=== PATIENT | female | born 1950 | race Caucasian/White ===

== ENCOUNTER → 2023-12-05 06:34 | Day surgery (SDC) | payer OTHER, SELFPAY | LOC: GI 06:34 | PROVIDERS: ATTENDING PHYSICIAN Internal Medicine Gastroenterology; FAMILY PHYSICIAN Family Medicine | DX: K44.9 Diaphragmatic hernia without obstruction or gangrene (principal); K29.50 Unspecified chronic gastritis without bleeding; K21.9 Gastro-esophageal reflux disease without esophagitis | CPT/HCPCS: 43239; 88305; 88342 ==

== ENCOUNTER → 2023-12-19 09:52 | Outpatient (REF) | payer OTHER, SELFPAY | LOC: RAD 09:52 | PROVIDERS: ATTENDING PHYSICIAN Physician Assistant Medical | DX: M89.8X1 Other specified disorders of bone, shoulder (principal); M53.3 Sacrococcygeal disorders, not elsewhere classified | CPT/HCPCS: 72202; 73000 ==

== ENCOUNTER → 2024-05-11 10:47 | Outpatient (REF) | payer MEDICARE, OTHER, SELFPAY | LOC: HWWDC 10:47 | PROVIDERS: ATTENDING PHYSICIAN Obstetrics & Gynecology Gynecology; FAMILY PHYSICIAN Family Medicine | DX: Z12.31 Encounter for screening mammogram for malignant neoplasm of breast (principal) | CPT/HCPCS: 77063; 77067 ==

== ENCOUNTER → 2024-05-18 08:08 | Outpatient (REF) | payer MEDICARE, OTHER, SELFPAY | LOC: HWRAD 08:08 | PROVIDERS: ATTENDING PHYSICIAN Internal Medicine Rheumatology; FAMILY PHYSICIAN Family Medicine | DX: M81.0 Age-related osteoporosis without current pathological fracture (principal) | CPT/HCPCS: 77080 ==

== ENCOUNTER 2024-10-13 09:07 | Emergency (ER) | payer MEDICARE, OTHER, SELFPAY ==
[2024-10-13 09:09] VITALS: BP 119/71
[2024-10-13 09:46] VITALS: BMI 27.6
[2024-10-13 09:51] VITALS: BP 114/80
[2024-10-13 10:00] VITALS: BP 119/79
[2024-10-13 11:00] VITALS: BP 109/69
--- NOTE | 2024-10-13 11:10 | ED.GENMED ---
History of Present Illness
General
Chief Complaint: Allergic Reaction
Source: patient
Time Seen by Provider: 10/13/24 09:30
History of Present Illness
History of Present Illness:
74-year-old female presents to the emergency room complaining of flushing and redness to her face as well as a sensation her face was tight. She also noted flushing and redness on her chest. No shortness of breath. Patient concerned she was
having an allergic reaction to an injection of Prolia she received 4 days ago. She also received a cortisone injection on into her finger for trigger finger. Patient feels the symptoms have improved somewhat at the time of my evaluation
compared to when she first noticed them. She did not take any medications at home. She denies any sore throat, cough, fever or chills. Symptoms began while she was eating breakfast but she denies eating any thing that she feels could have been an
allergen. She denies any nausea or vomiting.
Past History
Past History
ED Past Medical History: None
ED Past Surgical History: Orthopedic (Carpal tunnel right)
Social History
Tobacco: Non-smoker
Alcohol: None
Drug: None
Living: with family
Family History
Family History: Negative Early CAD or CAD
Phy Exam
Physical Exam
Physical Exam:
General: Awake, Alert, Oriented X3. No acute distress.
Vitals: unremarkable
Head: Atraumatic
Eyes: Pupils equal, EOMI
Throat: Airway intact, no exudates
Neck: Trachea midline
Lungs: Clear and equal b/l
Heart: Regular rate, no murmurs
Abd: Soft, Nontender, No pulsatile mass
Neuro: Nonfocal
Skin: Flushing of cheeks bilaterally, mild erythema to the anterior chest. No real urticarial lesions
Extremities: pulses equal b/l, no edema
Course
Orders/Labs/Results
Orders:
Orders
10/13/24 11:08
Diphenhydramine [Benadryl] 25 mg IV NOW STA
10/13/24 11:47
Basic Metabolic Panel Urgent
Complete Blood Count/No Diff Urgent
Abnormal Lab Results
10/13/24
11:47
MCH 31.3 H pg
(27.0-31.0)
MPV 11.1 H fL
(7.4-10.4)
10/13/24 11:47
10/13/24 11:47
Vital Signs
Initial and Last Documented VS:
Initial Vital Signs
Temp Pulse Resp BP Pulse Ox
98.4 F 58 16 119/71 100
10/13/24 09:09 10/13/24 09:09 10/13/24 09:09 10/13/24 09:09 10/13/24 09:09
Last Documented Vital Signs
Temp Pulse Resp BP Pulse Ox
98.4 F 54 16 113/71 98
10/13/24 09:09 10/13/24 13:00 10/13/24 13:00 10/13/24 13:00 10/13/24 13:00
MDM/Problems Addressed
Differential Diagnosis Includes:
allergic rx, viral illness
MDM/Problems Addressed:
Patient presents with facial erythema. No signs or symptoms of infection. No other signs or symptoms of a allergic reaction. No significant change with Benadryl. Patient observed for period of time without any change in her status. Stable for
discharge home. Discuss the symptoms with the doctor who prescribes her Prolia.
*Pulse Oximetry
Patient hypoxic: no
*Critical Care Note
Total Time (30-74mins, 75-104mins- exclusive of procedures): Not Applicable
ED Attending Note
-
Portions of this chart may have been created with voice recognition software.� Occasional wrong word or��sound alike� substitutions may have occurred due to the inherent limitations of voice recognition software.
Discharge Plan
Departure
Patient Disposition: Home (Routine Discharge)
Date of Disposition: 10/13/24
Time of Disposition: 12:54
Patient with high blood pressure during this ER visit?: No
Condition: Good
Discharge Problem:
Allergic reaction
Instructions: Adverse Drug Reactions, Adult (DC)
Prescriptions:
No Action
fexofenadine [Yoko] 180 MG tablet
180 mg PO DAILY
nitrofurantoin monohyd/m-cryst 100 MG capsule
100 mg PO BID
calcium-vitamin D3-vitamin K 1 EACH tablet,chewable
1 ea PO DAILY
cephalexin 500 MG capsule
500 mg PO BID Qty: 14 0RF
Referrals:
Stephen Ramey, DO [Family Provider] -
Interventions
Interventions:
*Risk Screen - Suicide Last Done: 10/13/24 09:09
*General Assessment Last Done: 10/13/24 09:09
*Neglect/Abuse Screening Last Done: 10/13/24 09:09
ED- Fall Risk Assessment Last Done: 10/13/24 13:00
*ED COVID-19 Vaccine History Last Done: 10/13/24 13:00
*Nursing Disposition Last Done: 10/13/24 13:00
ED- Cardiac Assessment Last Done: 10/13/24 09:50
ED- Pulmonary Assessment Last Done: 10/13/24 09:50
ED-Skin Assessment Last Done: 10/13/24 09:50
Discharge Date and Time
Discharge Date/Time: 10/13/24 13:00
Print Language: KOSOVAN
[2024-10-13] MEDS: BENADRYL 25 MG IV (11:50)
[2024-10-13 11:56] LABS: Hematocrit 43.9 % (37.0-47.0); Hemoglobin 14.7 g/dL (12.0-16.0); Mean Corp Hgb Conc. 33.5 g/dL (33.0-37.0); Mean Corpuscular Hgb 31.3 pg (27.0-31.0); Mean Corpuscular Volume 93.6 fL (81.0-99.0); Mean Platelet Volume 11.1 fL (7.4-10.4); Platelet Count 261 10^3/uL (130-400); Red Blood Cell Count 4.69 10^6/uL (4.20-5.40); White Blood Cell Count 7.7 10^3/uL (4.8-10.8)
[2024-10-13 12:00] VITALS: BP 134/77
[2024-10-13 12:12] LABS: Blood Urea Nitrogen 16 mg/dl (7-17); Carbon Dioxide 30 mmol/L (22-30); Chloride 105 mmol/L (98-107); Estimated Creatinine Clearance 67 ml/min; Glucose 73 mg/dl (70-99); Potassium 4.4 mmol/L (3.5-5.1); Sodium 141 mmol/L (135-145); eGFR > 60.00
[2024-10-13 13:00] VITALS: BP 113/71
== END 2024-10-13 13:00 | disposition home or self-care (01) ==
LOC: EMR 09:07
PROVIDERS: EMERGENCY PHYSICIAN Emergency Medicine; FAMILY PHYSICIAN Family Medicine
DX: T78.40XA Allergy, unspecified, initial encounter (principal); R23.2 Flushing; L53.9 Erythematous condition, unspecified
CPT/HCPCS: 99284; 96374; 80048; 85027

== ENCOUNTER → 2025-06-05 14:12 | Outpatient (REF) | payer MEDICARE, OTHER, SELFPAY | LOC: HWWDC 14:12 | PROVIDERS: ATTENDING PHYSICIAN Obstetrics & Gynecology Gynecology; FAMILY PHYSICIAN Family Medicine | DX: Z12.31 Encounter for screening mammogram for malignant neoplasm of breast (principal) | CPT/HCPCS: 77063; 77067 ==

== ENCOUNTER 2025-06-14 14:12 | Emergency (ER) | payer MEDICARE, OTHER, SELFPAY ==
[2025-06-14 14:22] VITALS: BP 150/80
[2025-06-14 15:32] LABS: Hematocrit 42.2 % (37.0-47.0); Hemoglobin 13.9 g/dL (12.0-16.0); Mean Corp Hgb Conc. 32.9 g/dL (33.0-37.0); Mean Corpuscular Volume 91.7 fL (81.0-99.0); Nucleated Red Blood Cells % 0 %; Platelet Count 246 10^3/uL (130-400); Red Cell Dist. Width 11.9 % (11.5-14.5)
[2025-06-14 15:46] LABS: ALT (SGPT) 16 U/L (0-35); AST (SGOT) 21 U/L (14-36); Albumin 4.3 g/dl (3.5-5.0); Alkaline Phosphatase 63 U/L (38-126); Blood Urea Nitrogen 16 mg/dl (7-17); Calcium 9.4 mg/dl (8.4-10.2); Carbon Dioxide 29 mmol/L (22-30); Chloride 107 mmol/L (98-107); Glucose 97 mg/dl (70-99); Potassium 3.9 mmol/L (3.5-5.1); Sodium 140 mmol/L (135-145); Total Protein 6.6 g/dl (6.3-8.2); eGFR > 60.00
--- NOTE | 2025-06-14 15:50 | ED.GENMED ---
History of Present Illness
General
Chief Complaint: Visual Problem
Source: patient
Exam Limitations: none
Time Seen by Provider: 06/14/25 15:25
Nursing documentation reviewed up to this point in time: agreed with
History of Present Illness
History of Present Illness:
The patient is a pleasant 74-year-old female who reports fairly sudden onset of left sided head numbness and pressure that started 11 AM this morning. The pressure was associated with a visual disturbance of the left eye. Patient describes a
visual disturbance as as if she was looking through a prism. She reports her vision was intact but the images were distorted. She also had associated mild nausea but no vomiting. She reports the visual disturbance lasted 30 minutes but went away
completely. Patient reports she still feels some pressure on the left side of her head. She denies eye pain. 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
abnormal was found in her eye. She was told that she had ' an aura'. Patient reports that she has no other symptoms such as weakness. She denies any numbness of the arms and legs. She denies dizziness or gait dysfunction. Patient denies a
history of high blood pressure, hyperlipidemia and states she is generally well and healthy.
Past History
Past History
ED Past Medical History: GERD
ED Past Surgical History: Orthopedic (Carpal tunnel right)
Social History
Tobacco: Non-smoker
Alcohol: None
Drug: None
Living: with family
Employment: Other
Family History
Family History: Other
Review of Systems
Review of Systems
Allergies reviewed?: Yes
All Other Systems: ROS reviewed and negative except as documented in HPI and ROS
Constitutional: Reports no symptoms
EENT: Reports no symptoms
Respiratory: Reports no symptoms
Cardiac: Reports no symptoms
ABD/GI: Reports nausea
: Reports no symptoms
Musculoskeletal: Reports no symptoms
Skin: Reports no symptoms
Neurological: Reports headache and numbness
Endocrine: Reports no symptoms
Hematologic/Lymphatic: Reports no symptoms
Psychiatric: Reports no symptoms
Phy Exam
Physical Exam
Physical Exam:
Physical Exam
General: no apparent distress, not acutely ill, very well and comfortable appearing
Neck: supple. no meningeal signs. normal psoterior pharynx
Heart: s1/s2 regular rate and rhythm, no murmur. equal radial pulses.
Lungs: no acute respiratory distress. clear bilaterally
Abdomen: normal bowel sounds. not tender. no CVAT
Neuro: alert and orientedx3. no focal neurological deficits. Equal sensation in face, arms and legs. Extraocular muscles intact. Visual perez intact. PERRL, no global eye tenderness. 5 out of 5 strength in all
extremities without drift. No ataxia
Skin: no rash
Psychiatric: well kept. interactive and cooperative
Extremities: no edema. no calf tenderness. negative homans. good distal pulses
Course
Orders/Labs/Results
Orders:
Orders
06/14/25 15:22
Complete Blood Count/With Diff Urgent
Comprehensive Metabolic Panel Urgent
Erythrocyte Sed Rate Urgent
Comment: ADD ON
06/14/25 15:25
Add On- LAB Urgent
Tests Added?: ESR
06/14/25 15:57
Prochlorperazine [Compazine] 10 mg IV NOW STA
06/14/25 16:00
CT Head W/o Iv Contrast Urgent
Comment:
Reason For Exam: headache, L eye complaint
CT Neck Angio W/wo Iv Contrast Urgent
Comment:
Reason For Exam: headache, L eye complaint
06/14/25 16:01
Diphenhydramine [Benadryl] 25 mg IV NOW STA
06/14/25 16:06
Electrocardiogram (*1) Urgent
Reason for Study: TIA/Stroke
Abnormal Lab Results
06/14/25
15:22
MCHC 32.9 L g/dL
(33.0-37.0)
MPV 11.1 H fL
(7.4-10.4)
06/14/25 15:22
06/14/25 15:22
Vital Signs
Initial and Last Documented VS:
Initial Vital Signs
Temp Pulse Resp BP Pulse Ox
97.4 F 58 18 150/80 95
06/14/25 14:22 06/14/25 14:22 06/14/25 14:22 06/14/25 14:22 06/14/25 14:22
Last Documented Vital Signs
Temp Pulse Resp BP Pulse Ox
97.4 F 58 18 116/82 95
06/14/25 14:22 06/14/25 14:22 06/14/25 14:22 06/14/25 17:00 06/14/25 17:30
MDM/Problems Addressed
Differential Diagnosis Includes:
Atypical migraine, acute CVA, retinal detachment
MDM/Problems Addressed:
Patient describes acute headache and visual disturbance
*Radiology
Radiology exam reviewed: radiology read reviewed
*Pulse Oximetry
SaO2: 95
Oxygen Mode of Delivery: Room air
Patient hypoxic: no
*Critical Care Note
Total Time (30-74mins, 75-104mins- exclusive of procedures): Not Applicable
Data Reviewed
Review of Other/Old Records Reveals: Labs (Labs reviewed from 10/2024 which showed no abnormalities)
Source: patient and spouse
Patient Management
Discussion with other providers: Other (Discussed case with Dr. Montes who recommended CT, CTA. Also recommended we treat with Compazine because he is most suspicious of acute migraine headache)
Escalation/DeEscalation of care consider admission/obs:
Patient priyanka extremely well and comfortable. Headache and numbness along head is gone with Compazine and Benadryl. Patient has not had any visual disturbances while in ED. Patient has a normal neurological exam at this time. Symptoms are much
more consistent with migraine rather than stroke, especially given that CT CTA are normal. Patient told to return with any further visual changes, any weakness, any dizziness or any other concerns
ED Attending Note
-
Portions of this chart may have been created with voice recognition software.� Occasional wrong word or��sound alike� substitutions may have occurred due to the inherent limitations of voice recognition software.
Discharge Plan
Departure
Patient Disposition: Home (Routine Discharge)
Date of Disposition: 06/14/25
Time of Disposition: 18:09
Patient with high blood pressure during this ER visit?: Yes
Condition: Good
Covid-19: Not Applicable
Discharge Problem:
Headache
Instructions: Headache, Adult (DC), BLOOD PRESSURE
Prescriptions:
No Action
fexofenadine [Yoko] 180 MG tablet
180 mg PO DAILY
nitrofurantoin monohyd/m-cryst 100 MG capsule
100 mg PO BID
calcium-vitamin D3-vitamin K 1 EACH tablet,chewable
1 ea PO DAILY
cephalexin 500 MG capsule
500 mg PO BID Qty: 14 0RF
Referrals:
Stephen Ramey, DO [Family Provider, Family Practice]
Activity Restrictions/Additional Instructions:
Return with any weakness of any kind. Return with any dizziness. Return with any loss of vision.
Interventions
Interventions:
*Risk Screen - Suicide Last Done: 06/14/25 14:22
*General Assessment Last Done: 06/14/25 14:22
*Neglect/Abuse Screening Last Done: 06/14/25 17:00
*ED- Fall Risk Assessment Last Done: 06/14/25 18:20
*ED COVID-19 Vaccine History Last Done: 06/14/25 14:22
*ED Influenza Vaccine History Last Done: 06/14/25 14:22
*Nursing Disposition Last Done: 06/14/25 18:20
ED- Neurological Assessment Last Done: 06/14/25 16:00
ED Swallowing Screen Last Done: 06/14/25 16:00
Discharge Date and Time
Discharge Date/Time: 06/14/25 18:20
Print Language: [place]
[2025-06-14] MEDS: COMPAZINE 10 MG IV (16:43)
[2025-06-14] MEDS: BENADRYL 25 MG IV (16:43)
[2025-06-14 16:58] VITALS: BP 127/65
[2025-06-14 17:00] VITALS: BP 116/82
== END 2025-06-14 18:20 | disposition home or self-care (01) ==
LOC: EMR 14:12
PROVIDERS: Emergency Medicine; EMERGENCY PHYSICIAN Emergency Medicine; FAMILY PHYSICIAN Family Medicine
DX: R51.9 Headache, unspecified (principal); R20.0 Anesthesia of skin; H53.8 Other visual disturbances
CPT/HCPCS: 96374; 96375; 99284; 70450; 70498; 80053; 85025; 85652; Q9967